=== PATIENT | male | born 1965 | race Caucasian/White ===

== ENCOUNTER 2017-08-03 08:41 | Emergency (ER) | payer OTHER ==
[2017-08-03] MEDS: FLUORESCEIN OPHTH 1 MG STRIP OS (09:18)
[2017-08-03] MEDS: IRRIGATION OPHTH SOLN (EYE WASH) 120ML OS (09:18)
[2017-08-03] MEDS: TETRACAINE 0.5% OPHTH SOLN 4ML OS (09:19)
== END 2017-08-03 09:38 | disposition home or self-care (01) ==
LOC: M ED 08:41
DX: S05.02XA Injury of conjunctiva and corneal abrasion without foreign body, left eye, initial encounter (principal); W22.8XXA Striking against or struck by other objects, initial encounter; Y92.099 Unspecified place in other non-institutional residence as the place of occurrence of the external cause; Y93.9 Activity, unspecified; Y99.9 Unspecified external cause status; F17.200 Nicotine dependence, unspecified, uncomplicated; J43.9 Emphysema, unspecified; L40.50 Arthropathic psoriasis, unspecified; Z79.899 Other long term (current) drug therapy; Z88.0 Allergy status to penicillin
CPT/HCPCS: 99283

== ENCOUNTER 2018-06-14 10:14 | Emergency (ER) | payer OTHER ==
[~2018-06-14] VITALS: Ht 172.7 cm; Wt 107.9 kg
[~2018-06-14 10:14] MED LIST: BREO1INH3; ERYT1OIN26; INCR1INH; LYRI75CA; SIMV20TA2; VENL75CA47; VENTAER
[2018-06-14 10:15] VITALS: BP 173/84
[2018-06-14] MEDS ORDERED: SYMB16INH (10:21)
[2018-06-14] MEDS ORDERED: HUMI40KI2 (10:21)
[2018-06-14] MEDS ORDERED: LIDOCAINE W/EPINEPHRINE 1% 20ML VIAL SC ONE (10:45)
[2018-06-14] MEDS ORDERED: KEFL500C17 PO (11:15)
[2018-06-14] MEDS ORDERED: CEPHALEXIN 500 MG CAP PO ONE (11:15)
--- NOTE | 2018-06-14 11:32 | REP ---
LEFT SHOULDER, THREE VIEWS: Three views of the left shoulder are performed. There is no acute fracture or dislocation. There is an old fracture of the left 5th rib. Mild joint space narrowing and spurring is seen at the acromioclavicular joint and glenohumeral joints. No radiopaque foreign body is seen in the soft tissues. Electronically Signed by Ezra Villa MD 06/14/2018 06:58 P
== END 2018-06-14 11:35 | disposition home or self-care (01) ==
LOC: M ED 10:14
DX: S41.012A Laceration without foreign body of left shoulder, initial encounter (principal); S76.912A Strain of unspecified muscles, fascia and tendons at thigh level, left thigh, initial encounter; W26.8XXA Contact with other sharp object(s), not elsewhere classified, initial encounter; Y92.018 Other place in single-family (private) house as the place of occurrence of the external cause; J44.9 Chronic obstructive pulmonary disease, unspecified; Z79.899 Other long term (current) drug therapy; Z88.0 Allergy status to penicillin; F17.210 Nicotine dependence, cigarettes, uncomplicated

== ENCOUNTER → 2018-07-28 | Outpatient (CLI) | payer OTHER ==
[~2018-07-28] MED LIST changes: +HUMI40KI2; +KEFL500C17 PO; +SYMB16INH
[2018-07-28 13:14] LABS: BASO # 0.1 10^3/uL (0.0-0.2); BASO % 0.6 % (0.0-1.0); EOS # 0.1 10^3/uL (0.0-0.50); EOS % 0.6 % (0.0-3.0); HEMATOCRIT 47.5 % (42.0-52.0); HEMOGLOBIN 15.5 g/dl (13.5-17.5); LYMPH # 2.3 10^3/uL (1.5-4.5); LYMPH % 15.6 % (24.0-44.0); MEAN CORPUSCULAR HEMOGLOBIN 33.1 pg (27.0-33.0); MEAN CORPUSCULAR HGB CONC 32.6 g/dl (32.0-36.5); MEAN CORPUSCULAR VOLUME 101.5 fl (80.0-96.0); MONO # 0.5 10^3/uL (0.0-0.8); MONO % 3.2 % (0.0-5.0); NEUTROPHILS # 11.4 10^3/uL (1.8-7.7); NEUTROPHILS % 78.3 % (36.0-66.0); PLATELET COUNT, AUTOMATED 425 10^3/uL (150-450); RED BLOOD COUNT 4.68 10^6/uL (4.30-6.10); WHITE BLOOD COUNT 14.5 10^3/uL (4.0-10.0)
== END ==
LOC: M SMT 10:14
PROVIDERS: ATTEND Internal Medicine Pulmonary Disease
DX: R05 Cough (principal); J45.998 Other asthma; J44.9 Chronic obstructive pulmonary disease, unspecified

== ENCOUNTER → 2018-11-19 | Outpatient (REF) ==
--- NOTE | 2018-11-20 08:16 | REP ---
Clinical: Pain. Technique: AP, lateral, bilateral oblique views of the right hand. Findings: Subchondral sclerosis with disc space narrowing and marginal spurring involving the interphalangeal joints and first metacarpophalangeal joint. Cortical irregularity and subtle spurring also identified at the first and second carpometacarpal joints. Subchondral sclerosis and joint space narrowing noted at the radiocarpal joint line. Possible old healed fifth metacarpal bone fracture. No acute fracture dislocation. Impression: Mild osteoarthritic degenerative changes. Electronically Signed by Spencer Mesa MD 11/20/2018 08:08 A
--- NOTE | 2018-11-20 08:18 | REP ---
Clinical: Back pain. Technique: AP, lateral, coned-down views of the lumbosacral spine. Findings: Spondylolysis and 2 mm of anterolisthesis at the L5-S1 level with hypertrophic facet changes cannot be excluded. Moderate multilevel degenerative changes noted throughout the remainder of the examination including endplate sclerosis with osteophytosis and mild hypertrophic facet changes. Minimal disc space narrowing at L4-5 noted. No acute fracture / compression injury. Impression: Multilevel degenerative changes as described above. No acute fracture / compression injury. Electronically Signed by Spencer Mesa MD 11/20/2018 08:10 A
== END ==
LOC: M SMT 10:55
PROVIDERS: ATTEND Internal Medicine
DX: Z02.71 Encounter for disability determination (principal)

== ENCOUNTER 2023-02-08 09:51 | Emergency (ER) | payer OTHER ==
[~2023-02-08] VITALS: Ht 170.2 cm; Wt 106.0 kg
[~2023-02-08 09:51] MED LIST changes: -ERYT1OIN26; +ERYT5OIN25; -SIMV20TA2; +SIMV20TA22
[2023-02-08] MEDS ORDERED: BENL200I SC (10:31)
[2023-02-08] MEDS ORDERED: KETOROLAC 30 MG/ML 1ML VIAL IM ONE (13:25)
[2023-02-08] MEDS ORDERED: TRAM50TA2 PO (14:17)
[2023-02-08 14:32] VITALS: BP 134/59; TEMP 97.8; O2SAT 98
== END 2023-02-08 14:37 | disposition home or self-care (01) ==
LOC: M ED 09:51
DX: M54.50 Low back pain, unspecified (principal); W10.9XXA Fall (on) (from) unspecified stairs and steps, initial encounter; Y92.009 Unspecified place in unspecified non-institutional (private) residence as the place of occurrence of the external cause; J44.9 Chronic obstructive pulmonary disease, unspecified; M32.9 Systemic lupus erythematosus, unspecified; Z88.0 Allergy status to penicillin; F17.200 Nicotine dependence, unspecified, uncomplicated
CPT/HCPCS: 36415; 71101; 72072; 80047; 96372; 99283; J1885

== ENCOUNTER 2024-04-21 12:59 | Inpatient (IN) | payer OTHER ==
[~2024-04-21] VITALS: Ht 170.2 cm; Wt 98.6 kg
[~2024-04-21 12:59] MED LIST changes: +BENL200I SC; +TRAM50TA2 PO; -VENTAER; +VENTAER INH
[2024-04-21] MEDS: FAMOTIDINE 20MG/2ML VIAL IVP ONE (13:37)
[2024-04-21] MEDS: methylPREDNISolone 125MG 2ML VIAL IV ONE (13:37)
[2024-04-21] MEDS: diphenhydrAMINE 50MG/ML VIAL IV ONE (13:37)
[2024-04-21] MEDS: IPRATROPIUM 0.5MG/ALBUTEROL 2.5MG INH SOL UD 3ML (DUONEB) NEB SCH ×2 (13:40→19:46)
[2024-04-21 13:53] LABS: BASO % 0.1 % (0.0-1.0); EOS # 0.1 10^3/uL (0.0-0.5); EOS % 0.4 % (0.0-3.0); HEMATOCRIT 39.5 % (42.0-52.0); HEMOGLOBIN 13.7 g/dl (13.5-17.5); LYMPH # 0.5 10^3/uL (1.5-5.0); LYMPH % 2.6 % (24.0-44.0); MEAN CORPUSCULAR HEMOGLOBIN 32.5 pg (27.0-33.0); MEAN CORPUSCULAR HGB CONC 34.7 g/dl (32.0-36.5); MEAN CORPUSCULAR VOLUME 93.8 fl (80.0-96.0); MONO # 0.5 10^3/uL (0.0-0.8); MONO % 2.7 % (2.0-8.0); NEUTROPHILS # 17.5 10^3/uL (1.5-8.5); NEUTROPHILS % 93.1 % (36.0-66.0); PLATELET COUNT, AUTOMATED 379 10^3/uL (150-450); RED BLOOD COUNT 4.21 10^6/uL (4.30-6.10); WHITE BLOOD COUNT 18.8 10^3/uL (4.0-10.0)
[2024-04-21 14:09] LABS: CK-MB VALUE MASS 3.4 NG/ML (<3.6)
[2024-04-21 14:10] LABS: BLOOD UREA NITROGEN 17 MG/DL (9-23); CALCIUM LEVEL 8.4 MG/DL (8.5-10.1); CARBON DIOXIDE LEVEL 31 MMOL/L (20-31); CHLORIDE LEVEL 90 MMOL/L (98-107); CREATININE FOR GFR 0.74 MG/DL (0.70-1.30); GLOMERULAR FILTRATION RATE > 60.0 (>56); GLUCOSE, FASTING 139 MG/DL (60-100); POTASSIUM SERUM 5.8 MMOL/L (3.5-5.1); SODIUM LEVEL 126 MMOL/L (136-145)
[2024-04-21 14:14] LABS: MB/CK RELATIVE INDEX 2.95 (< OR =4)
[2024-04-21] MEDS: PATIROMER SORBITEX CALCIUM 8.4 GM POWDER PACKET (VELTASSA) PO ONE (15:10)
[2024-04-21] MEDS: NYSTATIN 500,000U/5ML SUSP UDC SS ONE (15:11)
[2024-04-21 16:12] VITALS: O2SAT 95
[2024-04-21] MEDS ORDERED: diphenhydrAMINE 50MG CAP PO PRN (17:00)
[2024-04-21 17:08] LABS: ABG BASE EXCESS 2.2 (-2.0-2.0); ABG HCO3 25.8 MMOL/L (22.0-26.0); ABG O2 SATURATION 93.4 % (95.0-99.0); ABG PARTIAL PRESSURE CO2 36.9 mmHg (35.0-45.0); ABG PARTIAL PRESSURE O2 65.2 mmHg (75.0-100.0); ABG STANDARD HCO3 26.3 MMOL/L. (22.0-26.0); ABG TOTAL CO2 26.9 MMOL/L (22.0-29.0); ABG pH (ARTERIAL) 7.462 UNITS (7.350-7.450)
[2024-04-21] MEDS ORDERED: CITA40TA6 PO (17:19)
[2024-04-21] MEDS ORDERED: PRED10TA2 PO (17:19)
[2024-04-21] MEDS ORDERED: TREL1AER INH (17:19)
[2024-04-21] MEDS ORDERED: HYDR-3363 PO (17:19)
[2024-04-21] MEDS ORDERED: LIDO1PAD TOP (17:19)
[2024-04-21] MEDS ORDERED: BENZ200C70 PO (17:19)
[2024-04-21] MEDS ORDERED: LISI20TA33 PO (17:24)
[2024-04-21] MEDS ORDERED: ROSU10TA61 PO (17:24)
[2024-04-21] MEDS ORDERED: HYDR200T46 PO (17:24)
[2024-04-21] MEDS ORDERED: METO1TAB32 PO (17:24)
[2024-04-21] MEDS ORDERED: NAPR-849 PO (17:24)
[2024-04-21] MEDS ORDERED: HOME MED LIST COMPLETE! XX SCH (17:25)
[2024-04-21] MEDS: NYSTATIN 500,000U/5ML SUSP UDC PO SCH (17:38)
[2024-04-21] MEDS: NS (Normal Saline) 0.9% 1,000 ML IV ONE (17:39)
[2024-04-21 18:04] LABS: PROCALCITONIN 0.09 ng/ml
[2024-04-21] MEDS: FORMOTEROL FUMARATE 20 MCG/2 ML INHALATION SOLUTION (PERFOROMIST) INH SCH (19:46)
[2024-04-21] MEDS: BUDESONIDE 0.5 MG/2 ML INHALATION SUSPENSION NEB SCH (19:47)
[2024-04-21 21:04] VITALS: BP 168/81; TEMP 98.1; O2SAT 96
[2024-04-21] MEDS: methylPREDNISolone 40MG 1ML VIAL IV SCH (21:13)
[2024-04-21] MEDS: METOPROLOL SUCC *XL* 25MG TAB (TopROL *XL*) PO SCH (21:13)
[2024-04-21] MEDS: ROSUVASTATIN 10 MG TAB (CRESTOR) PO SCH (21:13)
[2024-04-21] MEDS ORDERED: LORA1TAB23 PO (21:26)
[2024-04-21] MEDS: HYDROXYCHLOROQUINE 200 MG TAB PO SCH (21:52)
[2024-04-21 22:09] LABS: BLOOD UREA NITROGEN 15 MG/DL (9-23); CALCIUM LEVEL 7.9 MG/DL (8.5-10.1); CARBON DIOXIDE LEVEL 29 MMOL/L (20-31); CHLORIDE LEVEL 92 MMOL/L (98-107); CREATININE FOR GFR 0.75 MG/DL (0.70-1.30); GLOMERULAR FILTRATION RATE > 60.0 (>56); GLUCOSE, FASTING 123 MG/DL (60-100); POTASSIUM SERUM 5.3 MMOL/L (3.5-5.1); SODIUM LEVEL 129 MMOL/L (136-145)
[2024-04-22 04:31] VITALS: BP 132/66; TEMP 97.5; O2SAT 100
[2024-04-22] MEDS: TIOTROPIUM INHALER/CAPSULE (SPIRIVA) INH SCH (07:21)
[2024-04-22] MEDS: ENOXAPARIN 40MG/0.4ML SYRINGE (J1650 PER 10MG) SC SCH (08:14)
[2024-04-22] MEDS: CitaloPRAM (CeleXA) 20 MG TAB PO SCH (08:14)
[2024-04-22 08:24] LABS: HEMATOCRIT 36.2 % (42.0-52.0); HEMOGLOBIN 12.4 g/dl (13.5-17.5); MEAN CORPUSCULAR HEMOGLOBIN 32.1 pg (27.0-33.0); MEAN CORPUSCULAR HGB CONC 34.3 g/dl (32.0-36.5); MEAN CORPUSCULAR VOLUME 93.8 fl (80.0-96.0); PLATELET COUNT, AUTOMATED 322 10^3/uL (150-450); RED BLOOD COUNT 3.86 10^6/uL (4.30-6.10); WHITE BLOOD COUNT 11.5 10^3/uL (4.0-10.0)
[2024-04-22 08:53] LABS: BLOOD UREA NITROGEN 14 MG/DL (9-23); CALCIUM LEVEL 8.4 MG/DL (8.5-10.1); CARBON DIOXIDE LEVEL 30 MMOL/L (20-31); CHLORIDE LEVEL 93 MMOL/L (98-107); GLOMERULAR FILTRATION RATE > 60.0 (>56); GLUCOSE, FASTING 121 MG/DL (60-100); POTASSIUM SERUM 5.2 MMOL/L (3.5-5.1); SODIUM LEVEL 131 MMOL/L (136-145)
[2024-04-22] MEDS: PATIROMER SORBITEX CALCIUM 8.4 GM POWDER PACKET (VELTASSA) PO SCH (11:52)
[2024-04-22] MEDS: NS (Normal Saline) 0.9% 1,000 ML IV SCH (11:52)
[2024-04-22 12:00] VITALS: BP 130/68; TEMP 97.6; O2SAT 98
[2024-04-22 20:00] VITALS: BP 127/66; TEMP 96.8; O2SAT 95
[2024-04-22 20:41] VITALS: BP 127/66
[2024-04-22] MEDS: LIDOCAINE 5% (LIDODERM) PATCH TD PRN (21:29)
[2024-04-23 04:00] VITALS: BP 128/62; TEMP 97; O2SAT 97
[2024-04-23 06:17] LABS: BASO % 0.1 % (0.0-1.0); HEMATOCRIT 31.6 % (42.0-52.0); HEMOGLOBIN 10.6 g/dl (13.5-17.5); LYMPH # 0.6 10^3/uL (1.5-5.0); MEAN CORPUSCULAR HEMOGLOBIN 32.1 pg (27.0-33.0); MEAN CORPUSCULAR HGB CONC 33.5 g/dl (32.0-36.5); MEAN CORPUSCULAR VOLUME 95.8 fl (80.0-96.0); MONO # 0.7 10^3/uL (0.0-0.8); MONO % 5.7 % (2.0-8.0); NEUTROPHILS # 11.4 10^3/uL (1.5-8.5); NEUTROPHILS % 88.3 % (36.0-66.0); PLATELET COUNT, AUTOMATED 307 10^3/uL (150-450); WHITE BLOOD COUNT 12.9 10^3/uL (4.0-10.0)
[2024-04-23 06:41] LABS: BLOOD UREA NITROGEN 14 MG/DL (9-23); CALCIUM LEVEL 7.9 MG/DL (8.5-10.1); CARBON DIOXIDE LEVEL 30 MMOL/L (20-31); CHLORIDE LEVEL 96 MMOL/L (98-107); CREATININE FOR GFR 0.63 MG/DL (0.70-1.30); GLOMERULAR FILTRATION RATE > 60.0 (>56); GLUCOSE, FASTING 104 MG/DL (60-100); POTASSIUM SERUM 4.5 MMOL/L (3.5-5.1); SODIUM LEVEL 135 MMOL/L (136-145)
[2024-04-23] MEDS ORDERED: PRED10TA2 PO (09:50)
[2024-04-23] MEDS ORDERED: NYST-38 PO (09:50)
== END 2024-04-23 12:07 | disposition home or self-care (01) | DRG 140 ==
LOC: M ED 12:59 → M ED INP 16:57 → M MS5PR 21:00
PROVIDERS: ADMIT Internal Medicine; ATTEND Internal Medicine
DX: J44.1 Chronic obstructive pulmonary disease with (acute) exacerbation (principal); J96.11 Chronic respiratory failure with hypoxia; B37.0 Candidal stomatitis; M32.9 Systemic lupus erythematosus, unspecified; Z99.81 Dependence on supplemental oxygen; E87.1 Hypo-osmolality and hyponatremia; E87.5 Hyperkalemia; I10 Essential (primary) hypertension; F41.9 Anxiety disorder, unspecified; E78.5 Hyperlipidemia, unspecified; J10.1 Influenza due to other identified influenza virus with other respiratory manifestations; R21 Rash and other nonspecific skin eruption; T38.0X5A Adverse effect of glucocorticoids and synthetic analogues, initial encounter; Z79.899 Other long term (current) drug therapy; Z88.0 Allergy status to penicillin; Z87.891 Personal history of nicotine dependence; Z88.2 Allergy status to sulfonamides

== ENCOUNTER → 2024-07-06 | Outpatient (REF) | payer OTHER, MEDICAID ==
[~2024-07-06] MED LIST changes: +BENZ200C70 PO; +CITA40TA6 PO; +HYDR-3363 PO; +HYDR200T46 PO; +LIDO1PAD TOP; +LISI20TA33 PO; +LORA1TAB23 PO; +METO1TAB32 PO; +NAPR-849 PO; +NYST-38 PO; +PRED10TA2 PO; +ROSU10TA61 PO; +TREL1AER INH
[2024-07-06 13:41] LABS: BASO # 0.1 10^3/uL (0.0-0.2); BASO % 0.8 % (0.0-1.0); EOS # 0.3 10^3/uL (0.0-0.5); EOS % 2.8 % (0.0-3.0); HEMATOCRIT 39.1 % (42.0-52.0); HEMOGLOBIN 12.7 g/dl (13.5-17.5); LYMPH % 21.4 % (24.0-44.0); MEAN CORPUSCULAR HEMOGLOBIN 32.2 pg (27.0-33.0); MEAN CORPUSCULAR HGB CONC 32.5 g/dl (32.0-36.5); MEAN CORPUSCULAR VOLUME 99.2 fl (80.0-96.0); MONO # 0.7 10^3/uL (0.0-0.8); NEUTROPHILS # 6.1 10^3/uL (1.5-8.5); NEUTROPHILS % 66.6 % (36.0-66.0); PLATELET COUNT, AUTOMATED 298 10^3/uL (150-450); RED BLOOD COUNT 3.94 10^6/uL (4.30-6.10); WHITE BLOOD COUNT 9.2 10^3/uL (4.0-10.0)
[2024-07-08 14:37] LABS: BERMUDA GRASS IGE < 0.10 kU/L (<0.10); BIRCH IGE < 0.10 kU/L (<0.10); COMMON RAGWEED SHORT IGE 0.33 kU/L (<0.10); D001 IGE D PTERONYSSINUS < 0.10 kU/L (<0.10); D002-IGE D FARINAE < 0.10 kU/L (<0.10); E001-IGE CAT DANDER < 0.10 kU/L (<0.10); E005-IGE DOG DANDER < 0.10 kU/L (<0.10); ELM IGE < 0.10 kU/L (<0.10); I006 IGE COCKROACH < 0.10 kU/L (<0.10); IMMUNOGLOBULIN E FOR ALLERGENS 279 kU/L (<OR=114); M002 IGE CLADOSPORIUM HERBARU < 0.10 kU/L (<0.10); M003 IGE ASPERGILLUS FUMIGATU < 0.10 kU/L (<0.10); M006 IGE ALTERNIA ALTERNATA < 0.10 kU/L (<0.10); M1-PENICILLIUM NOTATUM < 0.10 kU/L (<0.10); MOUSE URINE IGE < 0.10 kU/L (<0.10); MUGWORT IGE < 0.10 kU/L (<0.10); OAK IGE < 0.10 kU/L (<0.10); ROUGH PIGWEED IGE < 0.10 kU/L (<0.10); SHEEP SORREL IGE < 0.10 kU/L (<0.10); SYCAMORE IGE < 0.10 kU/L (<0.10); T001-IGE MAPLE BOX ELDER < 0.10 kU/L (<0.10); T006-IGE MOUNTAIN CEDAR < 0.10 kU/L (<0.10); T014 COTTONWOOD IGE < 0.10 kU/L (<0.10); TIMOTHY GRASS IGE < 0.10 kU/L (<0.10); WALNUT TREE IGE < 0.10 kU/L (<0.10); WHITE ASH IGE < 0.10 kU/L (<0.10); WHITE MULBERRY IGE < 0.10 kU/L (<0.10)
== END ==
LOC: M LAB REF 13:03
PROVIDERS: ATTEND Nurse Practitioner Adult Health
DX: J45.909 Unspecified asthma, uncomplicated (principal)